=== PATIENT | female | born 1990 ===

== ENCOUNTER 2017-08-14 16:07 | Emergency (ER) | payer SELFPAY ==
[2017-08-14] MEDS: Sodium Chloride 0.9% 2,000 ML IV ONE (16:10)
--- NOTE | 2017-08-14 16:35 | C.PDOC ---
Addendum entered and electronically signed by Seven Lee MD 08/15/17 08: 05: Disposition Counseled Patient/Family Regarding: Studies Performed, Diagnosis, Need For Followup Clinical Impression: Psychoactive substance-induced organic delirium, Wound, open, toe with tendon involvement, Finger laceration, Laceration of foot, Polysubstance abuse, Leukocytosis Disposition: AGAINST MEDICAL ADVICE Disposition Time: 08:03 Condition: STABLE Additional Instructions: you are signing out against medical advice you state understanding and will assume responsibility of your care you understand that my staff and I can't be responsible for potential negative outcome including you are welcome to return to ER at any time follow up with your doctor immediatel would check in 2 days. Instructions: Laceration Repair, White Blood Cell Count Differential Test, Drug Abuse and Drug Addiction (DC) Stand Alone Forms: [employer] (Welsh) Original Note: History Of Present Illness <Karla Mario - Last Filed: 08/15/17 06:54> <Seven Lee - Last Filed: 08/15/17 08:02> <Pavan Richard - Last Filed: 08/16/17 20:47> Received patient in s/p from Dr. Mario pending crisis evaluation. Patient was cleared from crisis viewpoint. Patient noted to have abn. blood work and currently has no new symptoms. Advised patient to have repeat blood work and patient at this time time is refusing and will sign out ama. Advised patient by leaving ama she is assuming responsibility of her care. Patient states understanding and will sign out ama and do not hold myself or staff responsible for potential negative outcome including . (Seven Lee) 27 year old female presents to the emergency department after being brought in by an ambulance, accompanied by [place] PD and EMS. EMS report was obtained , stating bizarre behavior. Patient admits to smoking marijuana cigar dipped in some unknown chemical substance (suggested by police to be DIP). Patient was presented to the ED in handcuffs behind the back, and was reported to be acting frankly psychotic, suggesting to jump off a building prior to being restrained by police. Patient also sustained a laceration to the dorsum of her left foot and the plantar surface of the left foot. Patient has an unknown history of substance abuse. (Pavan Richard) <Karla Mario - Last Filed: 08/15/17 06:54> <Seven Lee M - Last Filed: 08/15/17 08:02> History Per: EMS, Other (Police) History/Exam Limitations: clinical condition (under the influence of drugs), other (presented in handcuffs, exhibiting delusional behavior) Onset/Duration Of Symptoms: Hrs Suicide/Self Injury Attempted (Context): Other (attempted jumping off of a building) Modifying Factor(s): Marijuana, Other (marijuana cigar dipped in some unknown chemical) Associated Symptoms: Agitation, Suicidal Thoughts, Suicidal Plan, Other ( delusional, bizarre behavior) Additional History Per: EMS, Law Enforcement <Pavan Richard - Last Filed: 08/16/17 20:47> Time Seen by Provider: 08/14/17 16:32 Chief Complaint (Nursing): Psychiatric Evaluation Past Medical History Reviewed: Historical Data, Nursing Documentation, Vital Signs Surgical History: No Surg Hx Family History: States: No Known Family Hx - Social History Hx Alcohol Use: No Hx Substance Use: Yes (marijuana) <Pavan Richard - Last Filed: 08/16/17 20:47> Vital Signs: Last Vital Signs Temp 98.2 F 08/15/17 07:29 Pulse 87 08/15/17 07:29 Resp 18 08/15/17 07:29 BP 130/86 08/15/17 07:29 Pulse Ox 97 08/15/17 07:29 Review Of Systems Except As Marked, All Systems Reviewed And Found Negative. Neurological: Positive for: Altered Mental Status Psych: Positive for: Suicidal ideation <Pavan Richard - Last Filed: 08/16/17 20:47> Physical Exam - Physical Exam Appears: Other (under the influence of drugs) Oral Mucosa: Other (no smell of alcohol on breath) <Pavan Richard - Last Filed: 08/16/17 20:47> ED Course And Treatment - Laboratory Results Result Diagrams: 08/14/17 20:49 08/14/17 20:49 <Karla Mario - Last Filed: 08/15/17 06:54> - Laboratory Results Result Diagrams: 08/14/17 20:49 08/14/17 20:49 <Seven Lee - Last Filed: 08/15/17 08:02> - Laboratory Results Result Diagrams: 08/14/17 20:49 08/14/17 20:49 Lab Interpretation: Abnormal ECG: Interpreted By Me ECG Rhythm: Sinus Tachycardia ECG Interpretation: Abnormal Rate From EC O2 Sat by Pulse Oximetry: 94 (RA) Pulse Ox Interpretation: Normal - Radiology CXR: Interpreted by Me CXR Interpretation: Yes: No Acute Disease <Pavan Richard - Last Filed: 08/16/17 20:47> Critical Care Time - Critical Care Note Total Time (in mins): 120 Documented critical care: time excludes all time spent performing seperately billable procedures. <Pavan Richard E - Last Filed: 08/16/17 20:47> Medical Decision Making <Karla Mario - Last Filed: 08/15/17 06:54> <Seven Lee - Last Filed: 08/15/17 08:02> <Pavan Richard - Last Filed: 08/16/17 20:47> Medical Decision Making: Plan: EKG Chemistry Drug Screen CBC Glucose, POC Ativan 2mg IM Geodon 20mg IM Lidocaine 1% 20ml NaCl 2000ml IV 500mls/hr Urinalysis Time: 1900 Patient has a 6cm laceration to the plantar aspect of her left foot, beneath 1st MTP and involving the flexor tendon of the left great toe. Case discussed with podiatry resident who will contact her attending and formulate plan of care. Wound packed with saline dressing. 2200: CBC and chemistries repeated: low bicarb resolved, presumed related to hyperventilation on initial eval and fighting restraints/police leukocytosis increasing 19K to 25K, no source of infection noted, could be related to wounds and demargination from cocaine abuse. defer empiric abx for prob causes consider repeat CBC in AM or when pt more lucid. Initial hyerthermia ? drug related or exertional from phyusical confrontations. Resolved with IVF's and without NSAIDS 0000: Pt ambulatory in ED, conversant with staff and Crisis Animal Physiology Teacher d/w Crisis Evaluators who have evaluated pt pt's story seems either: Schizophrenic: long h/o PTSD/Abuse and ? underlying bipolar vs schizo as pt' s reality is unclear polysubstance abuser: + cocaine, THC, Opiates (Benzo's given in ED for sedation, but may be + prior as well) Suspect DIP per story by Police/EMS, which does not show in UDS Despite dramatic apparent delusional suicide attempt prevented by heroic [employer], no friends nor family to bedside all day to check on pt, suspicious for pt 's having a pattern of same. Confabulatory- doesn't know her address nor with whom she lives, story changes with each healthcare prof. Claims to have just moved in with new boyfriend 2 days ago but he is not available for comment. Dangerous to a child: pt claims to have a 7 y/o daughter for whom she has custody- DYFS contacted and coordinating with Crisis for appropriate investigation Incompetent: pt with poor insight into her injuries today an injury/rupture of L great to flexor tendon is in danger of being lost to follow-up by Podiatry , where the repair is ideally repaired in 7-10 days, but pt seems incapable of appropriate follow-up and risks [facility] disability/dysfunction and could be repaired by Podiatry as inpatient. 0030: signed over to overnight MD, pending Crisis Eval vs Psych Screening by [facility] 08/16/17 @ [id number]: following up pt's d/c from Tuesday AM, pt was cleared by Psych and d/c AMA refusing blood redraws to trend the leukocytosis/bandemia which may have been related to her physical altercations and wounds, but pt without evidence of acute infection Pt was cleared by Psych for d/c Tuesday @ 0700 Concerned pt will be lost to f/u for ruptured L great toe flexor tendon and want to assure follow-up left AMA, but is follow-ed up @ [facility] in [place] Called [phone], no answer Called pt's home phone/guarantor #'s, non-working Will try again during business hour during next tour. (Pavan Richard) Disposition <Karla Mario - Last Filed: 08/15/17 06:54> <Seven Lee - Last Filed: 08/15/17 08:02> - Disposition Disposition Time: 01:00 <Pavan Richard - Last Filed: 08/16/17 20:47> - Disposition Disposition: AGAINST MEDICAL ADVICE Condition: STABLE Additional Instructions: you are signing out against medical advice you state understanding and will assume responsibility of your care you understand that my staff and I can't be responsible for potential negative outcome including you are welcome to return to ER at any time follow up with your doctor immediatel would check in 2 days. Instructions: Laceration Repair, Drug Abuse and Drug Addiction (DC), White Blood Cell Count Differential Test Forms: [employer] (Welsh) - Clinical Impression Clinical Impression: Psychoactive substance-induced organic delirium, Wound, open, toe with tendon involvement, Finger laceration, Laceration of foot, Polysubstance abuse, Leukocytosis <Karla Mario - Last Filed: 08/15/17 06:54> <Seven Lee - Last Filed: 08/15/17 08:02> - Scribe Statement The provider has reviewed the documentation as recorded by the Scribe (Rajesh Sen) <Pavan Richard - Last Filed: 08/16/17 20:47> - Scribe Statement Provider Attestation: All medical record entries made by the Scribe were at my direction and personally dictated by me. I have reviewed the chart and agree that the record accurately reflects my personal performance of the history, physical exam, medical decision making, and the department course for this patient. I have also personally directed, reviewed, and agree with the discharge instructions and disposition. (Pavan Richard) Physician Patient Turnover Patient Signed Over To: Seven Lee Handoff Comments: Pending crisis reassessment and disposition. <Karla Mario - Last Filed: 08/15/17 06:54> Patient Signed Over To: Karla Mario Handoff Comments: dispo per psych/Crisis/Screening <Pavan Richard - Last Filed: 08/16/17 20:47> Addendum <Karla Mario - Last Filed: 08/15/17 06:54> <Seven Lee - Last Filed: 08/15/17 08:02> <Pavan Richard - Last Filed: 08/16/17 20:47> Addendum: 00:30 Patient turned over to me pending crisis reassessment in the morning. 06:45 Patient resting in room, no acute distress. Vital signs stable. 08/15/17 06:54 Patient to be turned over to Dr. Lee pending crisis reassessment and disposition. (Karla Mario) Procedures <Karla Mario - Last Filed: 08/15/17 06:54> <Seven Lee - Last Filed: 08/15/17 08:02> - Laceration/Wound Repair Left 2nd digit Wound Length (cm): 3 Wound's Depth, Shape: superficial Wound Explored: clean Betadine Prep?: Yes Anesthesia: 1% Lidocaine Wound Repaired With: Sutures Suture Size/Type: 3:0, nylon Number of Sutures: 3 Wound Complexity: Simple Sterile Dressing Applied?: Yes Left 3rd digit Wound Length (cm): 5 Wound's Depth, Shape: superficial Wound Explored: clean Betadine Prep?: Yes Anesthesia: 1% Lidocaine Wound Repaired With: Sutures Suture Size/Type: 3:0, nylon Number of Sutures: 5 Wound Complexity: Simple Sterile Dressing Applied?: Yes Dorsum of left foot Wound Length (cm): 10 Wound's Depth, Shape: superficial Wound Explored: clean Betadine Prep?: Yes Wound Repaired With: Danitza (7) Wound Complexity: Simple Sterile Dressing Applied?: Yes <Pavan Richard - Last Filed: 08/16/17 20:47> - Laceration/Wound Repair Left 2nd digit Progress: Patient tolerated procedure well. (Pavan Richard) Left 3rd digit Progress: Patient tolerated procedure well. (Pavan Richard) Dorsum of left foot Progress: Patient deeply sedated so anesthesia was not indicated. Patient tolerated procedure well. (Pavan Richard)
[2017-08-14 17:13] LABS: HCG,QUALITATIVE URINE NEGATIVE (NEGATIVE)
[2017-08-14 17:18] LABS: BASO # 0.2 K/uL (0.0-0.2); BASO % 1.1 % (0.0-2.0); EOS # 0.1 K/uL (0.0-0.7); EOS % 0.8 % (0.0-4.0); HEMOGLOBIN 13.9 g/dL (11.0-16.0); LYMPH # 4.4 K/uL (1.0-4.3); LYMPH % 23.1 % (20.0-40.0); MEAN CORPUSCULAR HEMOGLOBIN 31.1 pg (27.0-31.0); MEAN CORPUSCULAR HGB CONC 31.4 g/dL (33.0-37.0); MEAN PLATELET VOLUME 11.2 fL (7.2-11.7); MONO # 1.1 K/uL (0.0-0.8); MONO % 5.6 % (0.0-10.0); NEUT # 13.3 K/uL (1.8-7.0); NEUT % 69.4 % (50.0-75.0); RBC 4.45 Mil/uL (3.80-5.20); RED CELL DISTRIBUTION WIDTH 14.5 % (11.5-14.5); WHITE BLOOD COUNT 19.1 K/uL (4.8-10.8)
[2017-08-14 17:21] LABS: URINE BACTERIA RARE (<OCC); URINE BILIRUBIN NEGATIVE (NEGATIVE); URINE BLOOD NEGATIVE (NEGATIVE); URINE CLARITY Hazy (Clear); URINE COLOR Yellow (YELLOW); URINE GLUCOSE (UA) NORMAL (Normal); URINE LEUKOCYTE ESTERASE NEG Leu/uL (Negative); URINE PROTEIN 2+ mg/dL (NEGATIVE); URINE UROBILINOGEN NORMAL mg/dL (0.2-1.0)
[2017-08-14 17:25] LABS: ACETAMINOPHEN < 10.0 ug/mL (10.0-30.0); SALICYLATE < 1.0 mg/dL 1
[2017-08-14 17:26] LABS: BARBITURATES, UR NEGATIVE (NEGATIVE); PHENCYCLIDINE, UR NEGATIVE (NEGATIVE)
[2017-08-14 17:28] LABS: BENZODIAZEPINES, UR POSITIVE (NEGATIVE); OPIATES, UR POSITIVE (NEGATIVE)
[2017-08-14 17:30] LABS: ALB/GLOB RATIO 1.3 (1.0-2.1); ALBUMIN 5.4 g/dL (3.5-5.0); ALT/SGPT 9 U/L (9-52); AST/SGOT 41 U/L (14-36); BLOOD UREA NITROGEN 10 mg/dL (7-17); CALCIUM 9.9 mg/dl (8.6-10.4); GFR AFRICAN-AMERICAN 40; GFR NON-AFRICAN AMERICAN 33
[2017-08-14] MEDS ORDERED: Lidocaine 1% Inj (20ml) INFIL ONE (18:10)
[2017-08-14] MEDS ORDERED: Lidocaine 2% Inj (20ml) ONE (18:15)
--- NOTE | 2017-08-14 18:27 | CP.PCM.CON ---
History of Present Illness - History of Present Illness History of Present Illness: Podiatry Consult Note - Dr. aVlencia 27F seen and evaluated in ED for left foot plantar laceration with transected tendon. Patient sedated and with 4 restraints, on 1:1. HPI obtained from chart. Patient reported as acting psychotic and was found to be positive for several substances such as marijuana, opiates, and cocaine. Earlier today, pt attempted to jump off a building; was apprehended by police and while doing so sustained several lacerations including bottom of left foot, top of left foot, and in left hand 1st and 2nd digits. Review of Systems - Review of Systems Systems not reviewed;Unavailable: Acuity of Condition, Intoxicated, Uncooperative, Psychotic Past Patient History - Past Social History Smoking Status: Smoker Currrent Status Unknown - PSYCHIATRIC Hx Substance Use: Yes Meds Allergies/Adverse Reactions: Allergies Allergy/AdvReac Type Severity Reaction Status Date / Time Unobtainable Allergy Verified 08/14/17 19:40 - Medications Medications: Current Medications Sodium Chloride (Sodium Chloride 0.9%) 2,000 mls @ 500 mls/hr IV .Q4H ONE Stop: 08/14/17 20:09 Last Admin: 08/14/17 16:10 Dose: 500 mls/hr Physical Exam - Constitutional Appears: Combative - Extremities Exam Additional comments: LLE focused physical exam: VASC: DP and PT pulses palpable 2/4. CFT <3 seconds to all digits x5. Temperature gradient warm to warm. Mild nonpitting edema surrounding dorsal foot laceration. NEURO: Unable to assess DERM: 3.5 cm linear laceration noted to plantar aspect of 1st met head extending down to muscle with exposed, transected FHL; no active bleeding noted ; no purulence; no periwound erythema; no malodor; negative probe to bone. 6.5 cm linear laceration noted to dorsum of forefoot extending proximally into anterior ankle joint; no active bleeding noted; no purulence; minimal periwound erythema; no malodor. ORTHO: Pain on palpation plantar laceration. Results - Vital Signs Recent Vital Signs: Last Vital Signs Temp 99.2 F 08/14/17 17:24 Pulse 161 H 08/14/17 16:18 Resp 40 H 08/14/17 16:18 BP 147/61 08/14/17 16:18 Pulse Ox 94 L 08/14/17 16:55 - Labs Result Diagrams: 08/14/17 20:49 08/14/17 20:49 Labs: Laboratory Results - last 24 hr 08/14/17 08/14/17 08/14/17 16:25 17:04 17:04 WBC 19.1 H RBC 4.45 Hgb 13.9 Hct 44.1 MCV 99.0 MCH 31.1 H MCHC 31.4 L RDW 14.5 Plt Count 351 MPV 11.2 Neut % (Auto) 69.4 Lymph % (Auto) 23.1 Norton % (Auto) 5.6 Eos % (Auto) 0.8 Baso % (Auto) 1.1 Neut # (Auto) 13.3 H Lymph # (Auto) 4.4 H Norton # (Auto) 1.1 H Eos # (Auto) 0.1 Baso # (Auto) 0.2 Sodium Potassium Chloride Carbon Dioxide Anion Gap BUN Creatinine Est GFR ( Amer) Est GFR (Non-Af Amer) POC Glucose (mg/dL) 184 H Random Glucose Calcium Total Bilirubin AST ALT Alkaline Phosphatase Total Protein Albumin Globulin Albumin/Globulin Ratio Urine Color Yellow Urine Clarity Hazy Urine pH 5.0 Ur Specific [place] 1.020 Urine Protein 2+ H Urine Glucose (UA) Normal Urine Ketones Trace Urine Blood Negative Urine Nitrate Negative Urine Bilirubin Negative Urine Urobilinogen Normal Ur Leukocyte Esterase Neg Urine WBC (Auto) 1 Urine RBC (Auto) 1 Urine Bacteria Rare Urine HCG, Qual Negative Salicylates Urine Opiates Screen Urine Methadone Screen Acetaminophen Ur Barbiturates Screen Ur Phencyclidine Scrn Ur Amphetamines Screen U Benzodiazepines Scrn U Oth Cocaine Metabols U Cannabinoids Screen Alcohol, Quantitative 08/14/17 08/14/17 08/14/17 17:04 17:04 17:06 WBC RBC Hgb Hct MCV MCH MCHC RDW Plt Count MPV Neut % (Auto) Lymph % (Auto) [place] % (Auto) Eos % (Auto) Baso % (Auto) Neut # (Auto) Lymph # (Auto) [place] # (Auto) Eos # (Auto) Baso # (Auto) Sodium 143 Potassium 4.0 Chloride 95 L Carbon Dioxide 5 L* Anion Gap 47 H BUN 10 Creatinine 1.8 H Est GFR ( Amer) 40 Est GFR (Non-Af Amer) 33 POC Glucose (mg/dL) Random Glucose 200 H Calcium 9.9 Total Bilirubin 0.7 AST 41 H ALT 9 Alkaline Phosphatase 75 Total Protein 9.7 H Albumin 5.4 H Globulin 4.3 H Albumin/Globulin Ratio 1.3 Urine Color Urine Clarity Urine pH Ur Specific [place] Urine Protein Urine Glucose (UA) Urine Ketones Urine Blood Urine Nitrate Urine Bilirubin Urine Urobilinogen Ur Leukocyte Esterase Urine WBC (Auto) Urine RBC (Auto) Urine Bacteria Urine HCG, Qual Salicylates < 1.0 Urine Opiates Screen Positive H Urine Methadone Screen Negative Acetaminophen < 10.0 L Ur Barbiturates Screen Negative Ur Phencyclidine Scrn Negative Ur Amphetamines Screen Negative U Benzodiazepines Scrn Positive U Oth Cocaine Metabols Positive H U Cannabinoids Screen Positive H Alcohol, Quantitative < 10 Assessment & Plan - Assessment and Plan (Free Text) Assessment: 27F with laceration to plantar 1st metatarsal and dorsum of foot secondary to trauma Plan: Patient seen and evaluated Discussed with attending, Dr. Valencia Afebrile currently (Tmax 102.5 on admission) WBC 24.8 Laceration to dorsum of foot stapled without incident - done by ED Laceration to plantar foot cleansed with betadine/saline mix and closed using 6 3-0 nylon sutures; FHL tendon left exposed for surgical planning; may repair as outpatient Lacerations stable per podiatry standpoint PO antibiotics and pain regimen per ED Patient may follow up with Dr. Valencia in the podiatry clinic next Tuesday Thank you for the consult, please reconsult podiatry as needed
[2017-08-14] MEDS ORDERED: Bacitracin 500 Units/gm Oint Foilpak UD ONE (19:22)
[2017-08-14] MEDS ORDERED: Lidocaine 2% Inj (20ml) INFIL ONE (19:32)
[2017-08-14 20:53] LABS: BASO # 0.1 K/uL (0.0-0.2); BASO % 0.4 % (0.0-2.0); LYMPH # 0.5 K/uL (1.0-4.3); LYMPH % 2.2 % (20.0-40.0); MONO # 1.6 K/uL (0.0-0.8); MONO % 6.5 % (0.0-10.0); NEUT # 22.5 K/uL (1.8-7.0); NEUT % 90.9 % (50.0-75.0); WHITE BLOOD COUNT 24.8 K/uL (4.8-10.8)
[2017-08-14 21:08] LABS: ALB/GLOB RATIO 1.2 (1.0-2.1); ALBUMIN 3.6 g/dL (3.5-5.0); CALCIUM 7.6 mg/dl (8.6-10.4)
[2017-08-14 21:43] LABS: BANDS 5 % (0-2); LYMPHOCYTE 3 % (20-40); MONOCYTE 3 % (0-10); NEUTROPHIL 89 % (50-75); PLATELET ESTIMATE NORMAL (NORMAL); TOTAL CELLS COUNTED 100
[2017-08-14 22:49] LABS: ACETAMINOPHEN < 10.0 ug/mL (10.0-30.0)
[2017-08-14 23:04] LABS: SALICYLATE < 1.0 mg/dL 1
[2017-08-15 07:30] VITALS: BP 130/86; PULSE 87; RESP 18; TEMP 98.2
--- NOTE | 2017-08-15 08:06 | RAD ---
Chest x-ray single frontal view History: Leukocytosis. Comparison: 08/14/2017 Findings: No focal infiltrate or effusion. Heart size within normal limits. Impression: No focal infiltrate or effusion.
--- NOTE | 2017-08-15 18:19 | CARD ---
APPROVED REPORT EKG Measurement Heart [id number] MS [id number] <Conclusion> Sinus tachycardia Otherwise normal ECG
[2017-08-16 20:47] VITALS: O2SAT 94
== END 2017-08-15 08:20 | disposition left against medical advice (07) ==
LOC: C.ER 16:07
DX: S96.822A Laceration of other specified muscles and tendons at ankle and foot level, left foot, initial encounter (principal); S61.211A Laceration without foreign body of left index finger without damage to nail, initial encounter; S61.213A Laceration without foreign body of left middle finger without damage to nail, initial encounter; F19.921 Other psychoactive substance use, unspecified with intoxication with delirium; D72.829 Elevated white blood cell count, unspecified